=== PATIENT | female | born 1990 | race Hispanic/Latino ===

== ENCOUNTER 2018-04-14 09:34 | Observation (INO) | payer BC, OTHER ==
[2018-04-14] MEDS ORDERED: ONDANSETRON 4 MG/2 ML VIAL ONE ×3 (10:25→13:21)
[2018-04-14] MEDS ORDERED: NA CHLORIDE 0.9% 1,000 ML ONE (10:25)
[2018-04-14] MEDS ORDERED: PANTOPRAZOLE 40 MG INJ ONE (10:25)
[2018-04-14 10:44] LABS: Absolute Lymphocytes (CBC) 2.1 K/uL (0.7-4.9); Absolute Monocytes 0.5 K/uL (0.1-1.3); Absolute Neutrophil 9.2 K/uL (1.8-8.0); Basophils % 0.3 % (0-1.3); Eosinophils % 0.2 % (0-4.4); Hematocrit 39.6 % (36.0-45.0); Lymphocytes % 17.6 % (15.3-44.8); MCH 29.9 pg (27.0-35.0); MCV 90.3 fL (80-100); MPV 7.8 fL (7.6-11.3); Monocytes % 4.4 % (3.3-12.3); RBC Red Blood Cell Count 4.39 M/uL (3.86-4.86)
[2018-04-14 10:52] LABS: Albumin 4.3 g/dL (3.4-5.0); Bilirubin Direct 0.2 mg/dL (0-0.2); Bilirubin Total 0.5 mg/dL (0.2-1.0); Potassium 3.5 mmol/L (3.5-5.1); Protein, Total 8.3 g/dL (6.4-8.2)
--- NOTE | 2018-04-14 11:14 | RAD REPORT ---
EXAM DESCRIPTION: US - Abdomen Exam Limited - 04/14/2018 10:58 am CLINICAL HISTORY: Abdominal pain. COMPARISON: None. FINDINGS: Multiple gallstones. Mild gallbladder wall thickening. The biliary tree is borderline dilated IMPRESSION: Cholelithiasis. Mild gallbladder wall thickening may indicate cholecystitis Borderline dilatation of common bile duct
[2018-04-14] MEDS ORDERED: CEFTRIAXONE/SWI 1gm 1 GM/10 ML SYR ONE (11:33)
--- NOTE | 2018-04-14 11:38 | ER ---
Nurse's Notes [facility] Name: Iva Li Age: 28 yrs Sex: Female : 1990 Arrival Date: 04/14/2018 Time: 09:54 Bed 5 Private MD: Diagnosis: Cholecystitis Presentation: 04/14 10:01 Presenting complaint: Patient states: RUQ pain beginning one hour after eating la1 [employer] last night, has had pain in past as well. Transition of care: patient was not received from another setting of care. Onset of symptoms was April 14, 2018. Risk Assessment: Do you want to hurt yourself or someone else? Patient reports no desire to harm self or others. Initial Sepsis Screen: Does the patient meet any 2 criteria? No. Patient's initial sepsis screen is negative. Does the patient have a suspected source of infection? No. Patient's initial sepsis screen is negative. Care prior to arrival: None. 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 - Social history:: Smoking status: Patient/guardian denies using tobacco. - Ebola Screening: : No symptoms or risks identified at this time. Screenin:11 Abuse screen: Denies threats or abuse. Nutritional screening: No deficits noted. la1 Tuberculosis screening: No symptoms or risk factors identified. Fall Risk None identified. Assessment: 10:10 General: Appears uncomfortable, Behavior is calm, cooperative. Pain: Complains of pain la1 in right upper quadrant. Neuro: Level of Consciousness is awake, alert, obeys commands, Oriented to person, place, time, situation. Cardiovascular: Capillary refill < 3 seconds Patient's skin is warm and dry. Respiratory: Airway is patent Respiratory effort is even, unlabored, Respiratory pattern is regular, symmetrical, Breath sounds are clear bilaterally. GI: Abdomen is round non-distended, Bowel sounds present X 4 quads. Abd is soft X 4 quads Abdomen is tender to palpation in right upper quadrant and right lower quadrant. : No signs and/or symptoms were reported regarding the genitourinary system. 11:43 Reassessment: No changes from previously documented assessment. Patient and/or family la1 updated on plan of care and expected duration. Pain level reassessed. Patient is alert, oriented x 3, equal unlabored respirations, skin warm/dry/pink. Vital Signs: 10:02 BP 112 / 75; Pulse 117; Resp 18; Temp 99.2(O); Pulse Ox 100% on R/A; Weight 65.77 kg; la1 Height 5 ft. 5 in. (165.10 cm); 11:43 BP 135 / 80; Pulse 97; Resp 16; Temp 98.2(O); Pulse Ox 100% on R/A; la1 10:02 Body Mass Index 24.13 (65.77 kg, 165.10 cm) la1 ED Course: 09:54 Patient arrived in ED. sb2 10:00 Alex Nunez, CLAIR is Primary Nurse. hj 10:02 Triage completed. la1 10:02 Jono Franklin PA is PHCP. cp 10:02 Regino Campbell MD is Attending Physician. cp 10:03 Arm band placed on right wrist. la1 10:10 Dwayne Chavez, CLAIR is Primary Nurse. la1 10:11 Placed in gown. Bed in low position. Call light in reach. la1 10:11 No provider procedures requiring assistance completed. Inserted saline lock: 20 gauge la1 in right antecubital area, using aseptic technique. Blood collected. 10:56 Ultrasound completed. Patient tolerated well. sg3 11:37 Mu Barriga MD is Hospitalizing Provider. cp 13:02 Patient admitted, IV remains in place. intact. la1 Administered Medications: 10:24 Drug: Zofran 4 mg Route: IVP; Site: right antecubital; iw 10:39 Follow up: Response: No adverse reaction la1 10:24 Drug: ProTONIX 40 mg Route: IVP; Site: right antecubital; iw 10:39 Follow up: Response: No adverse reaction la1 10:24 Drug: NS 0.9% 1000 ml Route: IV; Rate: 1 bolus; Site: right antecubital; iw 11:37 Drug: Rocephin - (cefTRIAXone) 1 grams Route: IVPB; Infused Over: 30 mins; Site: right aj1 antecubital; 11:37 Drug: Zofran 4 mg Route: IVP; Site: right antecubital; aj1 11:45 Drug: metroNIDAZOLE 500 mg Volume: 100 ml; Route: IVPB; Infused Over: 30 mins; Site: aj1 right antecubital; Outcome: 11:38 Decision to Hospitalize by Provider. cp 12:55 Patient left the ED. 13:02 Admitted to OR accompanied by nurse, via stretcher. [facility] 13:02 Condition: stable 13:02 Instructed on the need for admit. Signatures: Radha Kaiser RN RN aj1 Shefali Barba RN RN Dwayne Chavez RN RN la1 Alex Nunez, RN RN Jono Decker PA PA cp Godinez, Sarah 3 Clarice Jones 2
--- NOTE | 2018-04-14 11:38 | EDPHYS ---
Physician Documentation [facility] Name: Iva Li Age: 28 yrs Sex: Female : 1990 Arrival Date: 04/14/2018 Time: 09:54 Bed 5 Private MD: ED Physician Regino Campbell HPI: 04/14 10:20 This 28 yrs old Female presents to ER via Ambulatory with complaints of cp Abdominal Pain, Vomiting. 10:20 The patient presents with abdominal pain in the epigastric area. Onset: The cp symptoms/episode began/occurred last night. The symptoms radiate to Associated signs and symptoms: Pertinent positives: nausea, Pertinent negatives: constipation, diarrhea, fever, active vomiting. 10:20 The symptoms are described as constant. Severity of pain: in the emergency department cp the pain is unchanged despite home interventions. 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 - Social history:: Smoking status: Patient/guardian denies using tobacco. - Ebola Screening: : No symptoms or risks identified at this time. ROS: 10:25 Constitutional: Negative for body aches, chills, fever, poor PO intake. cp 10:25 Eyes: Negative for injury, pain, redness, and discharge. cp 10:25 ENT: Negative for drainage from ear(s), ear pain, sore throat, difficulty swallowing, difficulty handling secretions. 10:25 Cardiovascular: Negative for chest pain, palpitations. 10:25 Respiratory: Negative for cough, shortness of breath, wheezing. 10:25 Abdomen/GI: Positive for abdominal pain, nausea, of the epigastric area, Negative for diarrhea, constipation, dysphagia, black/tarry stool, rectal bleeding, active vomiting. 10:25 Back: Positive for radiated pain. 10:25 : Negative for urinary symptoms, pelvic pain, vaginal bleeding, vaginal discharge. 10:25 Skin: Negative for cellulitis, rash. 10:25 Neuro: Negative for altered mental status, headache, weakness. 10:25 All other systems are negative. Exam: 10:30 Constitutional: The patient appears in no acute distress, alert, awake, non-toxic, well cp developed, well nourished. 10:30 Head/Face: Normocephalic, atraumatic. cp 10:30 Eyes: Periorbital structures: appear normal, Conjunctiva: normal, no exudate, no injection, Sclera: no appreciated abnormality, Lids and lashes: appear normal, bilaterally. 10:30 ENT: External ear(s): are unremarkable, Nose: is normal, Mouth: Lips: moist, Oral mucosa: pink and intact, moist, Posterior pharynx: is normal, airway is patent, no erythema, no exudate, Voice: is normal. 10:30 Neck: ROM/movement: is normal, is supple, without pain, no range of motions limitations, no nuchal rigidity. 10:30 Chest/axilla: Inspection: normal, Palpation: is normal, no crepitus, no tenderness. 10:30 Cardiovascular: Rate: tachycardic, Rhythm: regular. 10:30 Respiratory: the patient does not display signs of respiratory distress, Respirations: normal, no use of accessory muscles, no retractions, no splinting, no tachypnea, labored breathing, is not present, Breath sounds: are clear throughout, no decreased breath sounds, no stridor, no wheezing. 10:30 Abdomen/GI: Inspection: abdomen appears normal, Bowel sounds: active, all quadrants, Palpation: soft, in all quadrants, mild abdominal tenderness, moderate abdominal tenderness, in the epigastric area, rebound tenderness, is not appreciated, voluntary guarding, is not appreciated, involuntary guarding, is not appreciated. 10:30 Back: ROM is normal. 10:30 Skin: cellulitis, is not appreciated, no rash present. 10:30 Neuro: Orientation: to person, place \T\ time. Mentation: is normal, Cerebellar function: is grossly normal, Motor: moves all fours, strength is normal, Sensation: is normal. Vital Signs: 10:02 BP 112 / 75; Pulse 117; Resp 18; Temp 99.2(O); Pulse Ox 100% on R/A; Weight 65.77 kg; la1 Height 5 ft. 5 in. (165.10 cm); 11:43 BP 135 / 80; Pulse 97; Resp 16; Temp 98.2(O); Pulse Ox 100% on R/A; la1 10:02 Body Mass Index 24.13 (65.77 kg, 165.10 cm) la1 MDM: 10:02 Patient medically screened. 11:25 Data reviewed: vital signs, nurses notes, lab test result(s), radiologic studies, cp ultrasound. 11:25 Counseling: I had a detailed discussion with the patient and/or guardian regarding: the cp historical points, exam findings, and any diagnostic results supporting the discharge/admit diagnosis, lab results, radiology results. Response to treatment: the patient's symptoms have markedly improved after treatment. Physician consultation: Mu Barriga MD was contacted at 11:25, regarding admission, to the operating room, patient's condition, and will see patient in OR, later today. 04/14 10:13 Order name: Basic Metabolic Panel 04/14 10:13 Order name: CBC with Diff 04/14 10:13 Order name: Creatinine for Radiology 04/14 10:13 Order name: Hepatic Function 04/14 10:13 Order name: Lipase 04/14 10:46 Order name: CBC with Automated Diff; Complete Time: 11:16 EDMS 04/14 11:17 Interpretation: Normal except: WBC 11.9; MCV 90.3; MCH 29.9; SHYANN% 77.5; NEUT A 9.2. 04/14 10:49 Order name: Creatinine (Radiology Only); Complete Time: 11:16 EDMS 04/14 10:52 Order name: Basic Metabolic Panel; Complete Time: 11:16 EDMS 04/14 11:17 Interpretation: Normal except: GLUC 110; GFR 87. 04/14 10:52 Order name: Liver (Hepatic) Function; Complete Time: 11:16 EDMS 04/14 10:52 Order name: Lipase; Complete Time: 11:16 EDMS 04/14 10:58 Order name: Urine Dipstick--Ancillary (enter results) 04/14 10:58 Order name: Urine --Ancillary (enter results) 04/14 12:13 Order name: Urine --Ancillary EDUT 04/14 12:13 Order name: Urine Dipstick-Ancillary EDUT 04/14 10:13 Order name: IV Saline Lock; Complete Time: 10:40 04/14 10:13 Order name: Labs collected and sent; Complete Time: 10:40 04/14 10:13 Order name: Urine Dipstick-Ancillary (obtain specimen); Complete Time: 10:24 cp 04/14 10:13 Order name: Urine Test (obtain specimen); Complete Time: 10:25 cp 04/14 10:13 Order name: NPO; Complete Time: 10:39 cp 04/14 10:13 Order name: US Abdomen Limited: RUQ/epigastric cp 04/14 11:16 Order name: US; Complete Time: 11:16 EDMS Administered Medications: 10:24 Drug: Zofran 4 mg Route: IVP; Site: right antecubital; iw 10:39 Follow up: Response: No adverse reaction la1 10:24 Drug: ProTONIX 40 mg Route: IVP; Site: right antecubital; iw 10:39 Follow up: Response: No adverse reaction la1 10:24 Drug: NS 0.9% 1000 ml Route: IV; Rate: 1 bolus; Site: right antecubital; iw 11:37 Drug: Rocephin - (cefTRIAXone) 1 grams Route: IVPB; Infused Over: 30 mins; Site: right aj1 antecubital; 11:37 Drug: Zofran 4 mg Route: IVP; Site: right antecubital; aj1 11:45 Drug: metroNIDAZOLE 500 mg Volume: 100 ml; Route: IVPB; Infused Over: 30 mins; Site: aj1 right antecubital; Disposition: 18:47 Co-signature as Attending Physician, Regino Campbell MD. Disposition: 04/14/18 11:38 Hospitalization ordered by Mu Barriga for Observation. Preliminary diagnosis is Cholecystitis. - Bed requested for Operating Room. - Status is Observation. iw - Condition is Stable. - Problem is new. - Symptoms have improved. UTI on Admission? No Signatures: Dispatcher [employer] EDMS Radha Kaiser RN RN aj1 Shefali Barba RN RN iw Dwayne Chavez RN RN la1 Jono Franklin PA PA cp Regino Campbell MD MD Corrections: (The following items were deleted from the chart) 12:55 11:38 Hospitalization Ordered by Mu Barriga MD for Observation. Preliminary diagnosis iw is Cholecystitis. Bed requested for Operating Room. Status is Observation. Condition is Stable. Problem is new. Symptoms have improved. UTI on Admission? No. cp
[2018-04-14] MEDS ORDERED: METRONIDAZOLE 500mg IVPB 500 MG/100 ML BAG IV ONE (11:51)
[2018-04-14] MEDS ORDERED: ACETAMINOPHEN 500 MG TAB PO PRN (11:58)
[2018-04-14] MEDS ORDERED: MORPHINE 4 MG/ML SYR IV PRN (11:58)
[2018-04-14] MEDS ORDERED: ONDANSETRON 4 MG/2 ML VIAL IV PRN ×2 (11:58→14:44)
[2018-04-14] MEDS ORDERED: D5 0.45 NS 1,000 ML IV SCH (12:00)
[2018-04-14 12:12] LABS: Urine Blood TRACE (NEG); Urine Glucose NEGATIVE (NEG); Urine Protein NEGATIVE (NEG)
[2018-04-14] MEDS ORDERED: MORPHINE 2 MG/ML SYR IV PRN (12:49)
[2018-04-14] MEDS ORDERED: Ringers Lactate 1,000 ML IV ONE ×2 (13:02→14:32)
[2018-04-14] MEDS ORDERED: MIDAZOLAM HCL 2 MG/2 ML INJ ONE (13:21)
[2018-04-14] MEDS ORDERED: FENTANYL CITR 100 MCG/2 ML ONE (13:21)
[2018-04-14] MEDS ORDERED: PROPOFOL 200 MG/20 ML VIAL IV ONE (13:21)
[2018-04-14] MEDS ORDERED: GLYCOPYRROLATE 0.2 MG/ML SYR ONE (13:21)
[2018-04-14] MEDS ORDERED: KETOROLAC 30 MG/ML INJ ONE (13:22)
[2018-04-14] MEDS ORDERED: NEOSTIGMINE 1 MG/ML -5 ML SYRINGE ONE (13:22)
[2018-04-14] MEDS ORDERED: ROCURONIUM 50 MG/5 ML VIAL IV ONE (13:22)
[2018-04-14] MEDS ORDERED: LIDOCAINE 2% MPF 5 ML VIAL ONE (13:22)
[2018-04-14] MEDS ORDERED: MORPHINE 10 MG/ML VIAL ONE (13:59)
[2018-04-14] MEDS ORDERED: DEXAMETHASONE 10 MG/ML VIAL ONE (14:05)
[2018-04-14] MEDS ORDERED: Mastisol Adhesive Liq ONE (14:23)
[2018-04-14] MEDS: Ringers Lactate 1,000 ML IV SCH ×2 (15:00→22:39)
[2018-04-14] MEDS: HYDROMORPHONE HCL 1 MG/ML INJ IV PRN ×2 (15:35→20:58)
[2018-04-14 16:00] VITALS: BMI 24.1
--- NOTE | 2018-04-14 17:58 | PREOPHP ---
Date of Admission: 04/14/2018 Chief Complaint: Abdominal pain. History Of Present Illness: The patient is a 28-year-old female, who had an acute onset of right upp er quadrant abdominal pain, postprandial in nature, following a fatty meal. No nausea or vomiting. No diarrhea or constipation. No blood in her stool. No dysuria or hematuria. She has had previous episodes like this in the past following meals. No sore throat, runny nose, cough, headaches, or dizz iness. No chest pain. No fever or chills. Review of Systems: Otherwise unremarkable. Past Medical History: Negative. Past Surgical History: Negative. Allergies: NO ALLERGIES. Social History: She does not smoke or drink. Family History: Significant for stroke. Physical Examination: Vital Signs: Stable. She is afebrile. General: She is awake, alert, and oriented x3. Head and Neck: There was no evidence of icterus. Cranial nerves 2 through 12 are grossly within nor mal limits. No neck masses. No JVD. Throat clear. Neck supple. Chest: Clear. Heart: S1, S2. Abdomen: Soft, nondistended. Positive bowel sounds. Positive right upper quadrant tenderness with minimal rebound. No rigidity or guarding. Extremity: Adequately perfused. Nontender. Neuro: Nonfocal. Laboratory Data: White count is 11.9 with a left shift. LFT, amylase, and lipase are within normal limits. Imaging Data: Ultrasound shows cholecystitis, and the common bile duct is 3.5 mm. Assessment: Acute cholecystitis and cholelithiasis. Plan: Admit n.p.o., IV fluid, IV antibiotic, to the OR for lap zain, possible open The patient understands the risks, benefits, and alternatives, and agrees to procedure. /MODL Voice ID: [id number]
[2018-04-14] MEDS ORDERED: CEFOXITIN SODIUM 1 GM/VIAL IVPB SCH (18:00)
[2018-04-14] MEDS ORDERED: CEFOXITIN/SWI 1gm 1 GM/10 ML SYR IVP SCH (18:00)
[2018-04-14] MEDS: CEFOXITIN/SWI 1gm 1 GM/10 ML SYR IVP SCH (18:16)
[2018-04-14] MEDS ORDERED: PROMETHAZINE 25 MG/ML VIAL IV PRN (21:24)
--- NOTE | 2018-04-14 22:47 | OP ---
Date of Procedure: 04/14/2018 Surgeon: Mu Barriga MD Plumbing And Heating Mechanic: WILLIAM Brennan. Preoperative Diagnoses: Acute cholecystitis and cholelithiasis. Postoperative Diagnoses: Acute cholecystitis and cholelithiasis. Procedure: Laparoscopic cholecystectomy. Estimated Blood Loss: Minimal. Specimen: Gallbladder. Findings: As above. Anesthesia: General. Complications: None. Disposition: The patient tolerated the procedure in stable condition and was taken to Recovery in go od general condition. Procedure In Detail: The patient was brought to the OR and placed in supine position. General anest hesia was given. The patient was prepped and draped in usual sterile fashion. Marcaine 0.5% was inf iltrated locally. A 15-blade was used to make a 1 cm supraumbilical midline incision. Subcutaneous tissue was divided. Facia was identified and divided. A #1 Vicryl stay suture was placed. Peritone al cavity was entered with sharp and blunt dissection. A 12 mm trocar was placed into the peritoneal cavity under direct vision. Pneumoperitoneum was established. Three, 5 mm trocars placed, 1 in the epigastrium just lower midline, 2 in the right subcostal region. Laparoscopy revealed distended gal lbladder with acute cholecystitis. Gallbladder aspirated. Then, the fundus retracted superiorly. I nfundibulum was identified and retracted inferolaterally. Some adhesions present at the infundibulum freed with sharp and blunt dissection. Bleeding controlled with cautery. Cystic duct and cystic ar clarita were clearly identified with blunt dissection. Clips were placed. Both structures were divided . Cautery was used to remove the gallbladder from the liver bed. Bleeding on the liver bed was cont rolled with cautery. The gallbladder was retrieved through the umbilicus via an EndoCatch bag. Righ t upper quadrant was irrigated. Effluent was clear. No evidence of bleeding or bile leakage appreci ated. Subsequently, all trocars were removed under direct vision. Stay sutures were tied to each ot her to reapproximate the fascial defect. Subcutaneous wounds were irrigated. Bleeding was controlle d with cautery. A 3-0 chromic was used to reapproximate the subcutaneous tissue and close the skin. Sterile dressing was applied. The patient was awakened and taken to Recovery in good general condit ion. /MODL Voice ID: [id number] Report ID: [id number]
[2018-04-15] MEDS: CEFOXITIN/SWI 1gm 1 GM/10 ML SYR IVP SCH ×3 (00:02→12:38)
[2018-04-15] MEDS: Ringers Lactate 1,000 ML IV SCH ×2 (00:03→10:21)
[2018-04-15] MEDS: HYDROMORPHONE HCL 1 MG/ML INJ IV PRN (02:13)
[2018-04-15] MEDS: HYDROCODONE/APAP 7.5/325 MG TAB PO PRN ×2 (06:11→10:17)
[2018-04-15 06:27] LABS: Basophils % 0.1 % (0-1.3); Hematocrit 32.1 % (36.0-45.0); Lymphocytes % 6.1 % (15.3-44.8); MCH 30.2 pg (27.0-35.0); MCV 90.1 fL (80-100); MPV 7.8 fL (7.6-11.3); Monocytes % 6.2 % (3.3-12.3); RBC Red Blood Cell Count 3.57 M/uL (3.86-4.86)
[2018-04-15 07:37] LABS: Blood Morphology Comment NOT SEEN (NOT SEEN); Platelet Estimate ADEQ
[2018-04-15 09:21] VITALS: O2SAT 100
[2018-04-15 12:52] VITALS: BP 101/56; TEMP 98.1
--- NOTE | 2018-04-16 05:31 | DS ---
Date of Discharge: 04/15/2018 Admitting Diagnosis: Acute cholecystitis and cholelithiasis. Discharge Diagnosis: Acute cholecystitis and cholelithiasis. Procedure: Laparoscopic cholecystectomy. Hospital Course: The patient is a 28-year-old female, who underwent the aforementioned procedure yes terday and postoperatively she is tolerating diet today. Last night, she had 1 episode of vomiting, which was managed easily with antiemetics. She is ambulating. Pain control with p.o. pain medicatio n, afebrile. Again, she has had no further nausea or vomiting, after that 1 episode yesterday. Subs equently, the patient will be discharged to home. Disposition: Home. Condition: Stable. Discharge Instructions: Resume home medications and diet. Activity as tolerated. No heavy lifting. Remove outer dressing in a.m. Shower. Keep wound clean, dry. Keep Steri-Strips on at all times. Follow up in my office in 1-2 weeks. Call for appointment. Tylenol No. 3 one tablet p.o. q.4 p.r.n . pain. /MODL Voice ID: [id number] Report ID: [id number]
== END 2018-04-15 12:59 | disposition home or self-care (01) ==
LOC: ER 09:34 → ERHOLD 11:56 → 4TH 14:52
PROVIDERS: ADMIT Surgery; ATTEND Surgery
PROC: 0FT44ZZ Resection of Gallbladder, Percutaneous Endoscopic Approach (ICD-10-PCS; principal; 2018-04-14 12:30)
DX: K80.00 Calculus of gallbladder with acute cholecystitis without obstruction (principal)
CPT/HCPCS: 36415; 76705; 80048; 80076; 81003; 81025; 83690; 85025; 88304; 96374; 96375; 99285; C9113; G0378; J0696; J1100; J1170; J2250; J2405; J2550; J2704; J2710; J3010; J7030

== ENCOUNTER 2020-08-30 09:36 | Emergency (ER) | payer BC ==
--- OUTSIDE RECORDS SUMMARY | 2020-08-30 09:39 | XMS REPORT | Continuity of Care Document ---
:1990 Author Organization [facility] t Address [address] [place] [address] Care Team Providers Name Role Phone Unavailable Unavailable Unavailable Problems This patient has no known problems. Allergies, Adverse Reactions, Alerts This patient has no known allergies or adverse reactions. Medications Ordered Filled Start Stop Current Ordering Indication Dosage Frequency Signature Comments Components Source Medication Medication Date Date Medication? Clinician (SIG) Name Name Lansoprazol Lansoprazol 0 Yes Nancy [address] [facility] Omeprazole Omeprazole Yes Nancy not [facility] Emetrol Emetrol Yes Nancy not [facility] ZyrTEC ZyrTEC Yes Nancy not [facility] NyQuil NyQuil Yes Nancy not [facility] Pepto-Bismo Pepto-Bismo Yes Nancy not [facility] Medrol Medrol Yes Nancy as [facility] Venlafaxine Venlafaxine Yes Nancy [address] [facility] HCl ER HCl [facility] Procedures This patient has no known procedures. Encounters Start End Encounter Admission Attending Care Care Encounter Source Date/Time Date/Time Type Type Clinicians Facility Department ID 2020-08-24 2020-08-24 Outpatient [facility] [id number] [facility] 2020-08-12 2020-08-12 Out[facility] [id number] [facility] 2020-07-02 2020-07-02 Out[facility] [id number] [facility] 2020-06-09 2020-06-09 Out[facility] [id number] [facility] 2020-05-05 2020-05-05 Out[facility] [id number] [facility] 2020 2020 Outpatient [facility] [id number] [facility] 2020-03-31 2020-03-31 Out[facility] [id number] [facility] 2020-03-02 2020-03-02 Out[facility] [id number] [facility] 2020-02-27 2020-02-27 Out[facility] [id number] [facility] 2020-02-10 2020-02-10 Out[facility] [id number] [facility] 2019-11-17 2019-11-17 [facility] [id number] [facility] 13[facility]38[facility]00 13:38:00 [facility] 2019-11-07 2019-11-07 [facility] [id number] [facility] 16:00[facility]00 16:00:00 [facility] 2019-08-08 2019-08-08 [facility] [id number] [facility] 10:21:00 10:21:00 [facility] 2019-08-08 2019-08-08 [facility] [id number] [facility] 09:45:00 09:45:00 t [facility] 2019-05-09 2019-05-09 [facility] [id number] [facility] 09:45:00 09:45:00 t [facility] 2019-04-21 2019-04-21 [facility] [id number] [facility] 16:26:00 16:26:00 t [facility] 2019-01-08 2019-01-08 [facility] [id number] [facility] 16:20:00 16:20:00 t [facility] 2018-04-11 2018-04-11 [facility] [id number] [facility] 13:30:00 13:30:00 [facility] Outpat[facility] Clin[facility] Results This patient has no known results.
[2020-08-30 10:17] LABS: Absolute Lymphocytes (CBC) 1.1 K/uL (0.7-4.9); Basophils % 0.2 % (0-1.3); Hematocrit 38.8 % (36.0-45.0); Lymphocytes % 9.8 % (15.3-44.8); MPV 7.7 fL (7.6-11.3); RBC Red Blood Cell Count 4.53 M/uL (3.86-4.86)
[2020-08-30] MEDS ORDERED: NA CHLORIDE 0.9% 1,000 ML ONE (10:25)
[2020-08-30] MEDS ORDERED: ONDANSETRON 4 MG/2 ML VIAL ONE (10:25)
[2020-08-30 10:49] LABS: ALT/SGPT 21 U/L (12-78); AST/SGOT 13 U/L (15-37); Albumin 3.7 g/dL (3.4-5.0); Alkaline Phosphatase 55 U/L (45-117); BUN Blood Urea Nitrogen 13 mg/dL (7-18); Bicarbonate 25 mmol/L (21-32); Bilirubin Direct 0.1 mg/dL (0-0.2); Bilirubin Total 0.4 mg/dL (0.2-1.0); Glucose Level 112 mg/dL (74-106); Lipase 60 U/L (73-393); Potassium 3.4 mmol/L (3.5-5.1); Protein, Total 8.1 g/dL (6.4-8.2); Sodium Level 137 mmol/L (136-145)
--- NOTE | 2020-08-30 11:11 | ER ---
Nurse's Notes [facility] Name: Iva Li Age: 30 yrs Sex: Female : 1990 Arrival Date: 08/30/2020 Time: 09:42 Bed 3 Private MD: Del Rivers Diagnosis: Nausea and vomiting;Diarrhea, unspecified Presentation: 08/30 09:58 Chief complaint: Patient states: vomiting and diarrhea that began yesterday morning. Pt ss believes she may be dehydrated. Coronavirus screen: Client denies travel out of the [place] in the last 14 days. Ebola Screen: Patient denies exposure to infectious person. Patient denies travel to an Ebola-affected area in the 21 days before illness onset. Initial Sepsis Screen: Does the patient meet any 2 criteria? No. Patient's initial sepsis screen is negative. Does the patient have a suspected source of infection? No. Patient's initial sepsis screen is negative. Risk Assessment: Do you want to hurt yourself or someone else? Patient reports no desire to harm self or others. Onset of symptoms was August 29, 2020. 09:58 Method Of Arrival: Ambulatory ss 09:58 Acuity: ERIN 2 ss Historical: - Allergies: 10:01 No Known Allergies; ss - Home Meds: 10:01 venlafaxine 37.5 mg oral tr24 [Active]; ss - PMHx: 10:01 ADD/ADHD; GERD; ss - PSHx: 10:01 Cholecystectomy; ss - Immunization history:: Adult Immunizations up to date. - Social history:: Smoking status: Patient denies any tobacco usage or history of. Screenin:12 Abuse screen: Denies threats or abuse. Denies injuries from another. Nutritional sv screening: No deficits noted. Tuberculosis screening: No symptoms or risk factors identified. Fall Risk None identified. Assessment: 10:13 General: Appears in no apparent distress. Behavior is calm, cooperative. Pain: Pain hb currently is 8 out of 10 on a pain scale. Neuro: Level of Consciousness is awake, alert, obeys commands, Oriented to person, place, time, situation. Cardiovascular: Patient's skin is warm and dry. Rhythm is sinus tachycardia. Respiratory: Respiratory effort is even, unlabored, Respiratory pattern is regular, symmetrical. GI: Reports lower abdominal pain, upper abdominal pain, diarrhea, nausea. : No signs and/or symptoms were reported regarding the genitourinary system. EENT: No signs and/or symptoms were reported regarding the EENT system. Derm: Skin is pink, warm \T\ dry. Musculoskeletal: No signs and/or symptoms reported regarding the musculoskeletal system. 11:43 Reassessment: Patient appears in no apparent distress at this time. Patient and/or sv family updated on plan of care and expected duration. Pain level reassessed. Patient is alert, oriented x 3, equal unlabored respirations, skin warm/dry/pink. Patient states feeling better. Patient states symptoms have improved. Vital Signs: 09:58 BP 127 / 90; Pulse 129; Resp 15; Temp 97.2(TE); Pulse Ox 99% on R/A; Height 5 ft. 5 in. ss (165.10 cm); Pain 8/10; 11:09 BP 119 / 72; Pulse 104; Resp 16; Pulse Ox 100% on R/A; hb 11:43 BP 112 / 77; Pulse 99; Resp 16; Pulse Ox 100% ; sv ED Course: 09:42 Patient arrived in ED. mr 09:42 Del Rivers DO is Private Physician. mr 09:43 [facility]C [facility]. kb 09:43 Nitish Yanez MD is Attending Physician. kb 10:00 Triage completed. ss 10:01 Arm band placed on right wrist. ss 10:03 Nimo Power, CLAIR is Primary Nurse. sv 10:10 Inserted saline lock: 20 gauge in right antecubital area, using aseptic technique. hb Blood collected. 10:12 Patient has correct armband on for positive identification. Bed in low position. Call hb light in reach. 10:12 Patient has correct armband on for positive identification. Bed in low position. Call sv light in reach. Adult w/ patient. Pulse ox on. NIBP on. Door closed. Head of bed elevated. 10:12 Basic Metabolic Panel Sent. sv 11:42 No provider procedures requiring assistance completed. IV discontinued, intact, sv bleeding controlled, No redness/swelling at site. Pressure dressing applied. Administered Medications: 10:11 Drug: NS 0.9% 1000 ml Route: IV; Rate: 1000 ml; Site: right antecubital; sv 11:44 Follow up: Response: No adverse reaction; IV Status: Completed infusion; IV Intake: sv 1000ml 10:11 Drug: Zofran (Ondansetron) 4 mg Route: IVP; Site: right antecubital; sv 11:00 Follow up: Response: No adverse reaction; Marked relief of symptoms sv 11:19 Drug: Bentyl (dicyclomine) 20 mg Route: PO; hb 11:43 Follow up: Response: No adverse reaction sv Intake: 11:44 IV: 1000ml; Total: 1000ml. sv Outcome: 11:10 Discharge ordered by . kb 11:42 Discharged to home ambulatory, with family. sv 11:42 Condition: stable 11:42 Condition: improved 11:42 Discharge instructions given to patient, Instructed on discharge instructions, follow up and referral plans. medication usage, Demonstrated understanding of instructions, follow-up care, medications, Prescriptions given X 2. 11:44 Patient left the ED. sv Signatures: Nohemy Momin, FAYE-C FLOOR SANDING MACHINE OPERATOR-Nimo Sparrow RN RN ReneeEloisa Shelby, RN RN Lesli Berry RN RN Corrections: (The following items were deleted from the chart) 10:05 09:58 Acuity: ERIN 3 ss ss
--- NOTE | 2020-08-30 11:11 | EDPHYS ---
Physician Documentation [facility] Name: Iva Li Age: 30 yrs Sex: Female : 1990 Arrival Date: 08/30/2020 Time: 09:42 Bed 3 Private MD: Silvestre [facility] ED Physician Nitish Yanez HPI: 08/30 10:13 This 30 yrs old Female presents to ER via Ambulatory with complaints of kb Vomiting/Diarrhea. 10:13 The patient presents to the emergency department with nausea, vomiting, diarrhea. kb Onset: The symptoms/episode began/occurred yesterday. Possible causes: ate "too heavy". The symptoms are aggravated by nothing. The symptoms are alleviated by nothing. Associated signs and symptoms: Pertinent positives: diarrhea, nausea, vomiting. Severity of symptoms: At their worst the symptoms were moderate in the emergency department the symptoms have improved. The patient has not experienced similar symptoms in the past. The patient has not recently seen a physician. Pt reports n/v/d that started yesterday morning. States she has GERD and thinks she ate "too heavy" on Sunday night. Reports soreness to abd, but not pain. No sick contacts. No n/v/d this morning, but feels dehydrated and weak so she came in. Historical: - Allergies: 10:01 No Known Allergies; ss - Home Meds: 10:01 venlafaxine 37.5 mg oral tr24 [Active]; ss - PMHx: 10:01 ADD/ADHD; GERD; ss - PSHx: 10:01 Cholecystectomy; ss - Immunization history:: Adult Immunizations up to date. - Social history:: Smoking status: Patient denies any tobacco usage or history of. ROS: 10:13 Constitutional: Negative for fever, chills, and weight loss, Cardiovascular: Negative kb for chest pain, palpitations, and edema, Respiratory: Negative for shortness of breath, cough, wheezing, and pleuritic chest pain, MS/Extremity: Negative for injury and deformity, Skin: Negative for injury, rash, and discoloration, Neuro: Negative for headache, weakness, numbness, tingling, and seizure. 10:13 Abdomen/GI: Positive for nausea, vomiting, and diarrhea, Negative for abdominal pain. Exam: 10:12 Constitutional: This is a well developed, well nourished patient who is awake, alert, kb and in no acute distress. Head/Face: Normocephalic, atraumatic. Cardiovascular: Regular rate and rhythm with a normal S1 and S2. No gallops, murmurs, or rubs. No pulse deficits. Respiratory: Respirations even and unlabored. No increased work of breathing, no retractions or nasal flaring. Skin: Warm, dry with normal turgor. Normal color. MS/ Extremity: Pulses equal, no cyanosis. Neurovascular intact. Full, normal range of motion. Neuro: Awake and alert, GCS 15, oriented to person, place, time, and situation. Moves all extremities. Normal gait. 10:12 Abdomen/GI: Inspection: abdomen appears normal, Bowel sounds: normal, in all quadrants, Palpation: soft, in all quadrants, mild abdominal tenderness, in all quadrants, "soreness". Vital Signs: 09:58 BP 127 / 90; Pulse 129; Resp 15; Temp 97.2(TE); Pulse Ox 99% on R/A; Height 5 ft. 5 in. ss (165.10 cm); Pain 8/10; 11:09 BP 119 / 72; Pulse 104; Resp 16; Pulse Ox 100% on R/A; hb 11:43 BP 112 / 77; Pulse 99; Resp 16; Pulse Ox 100% ; sv MDM: 10:02 Patient medically screened. kb 10:12 Data reviewed: vital signs, nurses notes. Data interpreted: Pulse oximetry: on room air kb is 99 %. Interpretation: normal. 11:07 Counseling: I had a detailed discussion with the patient and/or guardian regarding: the kb historical points, exam findings, and any diagnostic results supporting the discharge/admit diagnosis, lab results, the need for outpatient follow up, a family practitioner, to return to the emergency department if symptoms worsen or persist or if there are any questions or concerns that arise at home. 08/30 10:03 Order name: Basic Metabolic Panel kb 08/30 10:03 Order name: CBC with Diff; Complete Time: 10:19 kb 08/30 10:03 Order name: Hepatic Function; Complete Time: 11:03 kb 08/30 10:03 Order name: Lipase; Complete Time: 11: kb 08/30 10:04 Order name: Basic Metabolic Panel; Complete Time: 11:03 EDMS 08/30 10:03 Order name: IV Saline Lock; Complete Time: 10:12 kb 08/30 10:03 Order name: Labs collected and sent; Complete Time: 10:12 kb 08/30 11:03 Order name: PO challenge; Complete Time: 11:19 kb 08/30 11:07 Order name: Vital Signs; Complete Time: 11:09 kb Administered Medications: 10:11 Drug: NS 0.9% 1000 ml Route: IV; Rate: 1000 ml; Site: right antecubital; sv 11:44 Follow up: Response: No adverse reaction; IV Status: Completed infusion; IV Intake: sv 1000ml 10:11 Drug: Zofran (Ondansetron) 4 mg Route: IVP; Site: right antecubital; sv 11:00 Follow up: Response: No adverse reaction; Marked relief of symptoms sv 11:19 Drug: Bentyl (dicyclomine) 20 mg Route: PO; hb 11:43 Follow up: Response: No adverse reaction sv Disposition: 08/30/20 11:10 Discharged to Home. Impression: Nausea and vomiting, Diarrhea, unspecified. - Condition is Stable. - Discharge Instructions: Food Choices to Help Relieve Diarrhea, Adult, Nausea and Vomiting, Adult, [id number], Diarrhea, Adult, [id number]. - Prescriptions for Bentyl 20 mg Oral Tablet - take 1 tablet by ORAL route every 6 hours As needed; 20 tablet. Zofran 4 mg Oral Tablet - take 1 tablet by ORAL route every 6 hours As needed; 20 tablet. - Medication Reconciliation Form, Thank You Letter, Antibiotic Education, Prescription Opioid Use form. - Follow up: Emergency Department; When: As needed; Reason: Worsening of condition. Follow up: Private Physician; When: 2 - 3 days; Reason: Recheck today's complaints, Continuance of care, Re-evaluation by your physician. Addendum: 09/02/2020 06:13 Co-signature as Attending Physician, Nitish Yanez MD. m a2 Signatures: Dispatcher [employer] [facility] Nohemy Momin, MADDY MCKINNEY-Nimo Sparrow RN Ashley Baez RN RN ss Baxter, Heather, RN RN Nitish Yanez MD MD nc2 Corrections: (The following items were deleted from the chart) 08/30 11:44 11:10 08/30/2020 11:10 Discharged to Home. Impression: Nausea and vomiting; Diarrhea, sv unspecified. Condition is Stable. Discharge Instructions: Food Choices to Help Relieve Diarrhea, Adult, Nausea and Vomiting, Adult, [id number], Diarrhea, Adult, [id number]. Prescriptions for Bentyl 20 mg Oral Tablet - take 1 tablet by ORAL route every 6 hours As needed; 20 tablet, Zofran 4 mg Oral Tablet - take 1 tablet by ORAL route every 6 hours As needed; 20 tablet. and Forms are Medication Reconciliation Form, Thank You Letter, Antibiotic Education, Prescription Opioid Use. Follow up: Emergency Department; When: As needed; Reason: Worsening of condition. Follow up: Private Physician; When: 2 - 3 days; Reason: Recheck today's complaints, Continuance of care, Re-evaluation by your physician. kb
[2020-08-30] MEDS ORDERED: DICYCLOMINE HCL 10 MG CAP ONE (11:30)
[2020-08-30 11:51] VITALS: TEMP 97.2
[2020-08-30 11:53] VITALS: O2SAT 100
[2020-08-30 11:54] VITALS: BP 112/77
== END 2020-08-30 11:44 | disposition home or self-care (01) ==
LOC: ER 09:36
DX: R19.7 Diarrhea, unspecified (principal); K21.9 Gastro-esophageal reflux disease without esophagitis; F90.9 Attention-deficit hyperactivity disorder, unspecified type
CPT/HCPCS: 85025; 80048; 36415; 80076; 83690; J7030; J2405; 96361; 96374; 99284